=== PATIENT | female | born 1945 | race Two or more races ===

== ENCOUNTER → 2016-08-18 | Outpatient (CLI) | payer MEDICARE ==
--- NOTE | 2016-08-18 16:52 | Diagnostic Imaging Report ---
Indication: COUGH Technique: Two views of the chest Comparison: none Findings: Heart size is normal. Aorta is tortuous calcified and ectatic. Upper mediastinum is unremarkable. There are degenerative changes of the thoracic spine. Impression: No acute process
== END | disposition home or self-care (01) ==
LOC: RAD 15:35
DX: R05 Cough (principal); M51.34 Other intervertebral disc degeneration, thoracic region
CPT/HCPCS: 71020

== ENCOUNTER 2016-09-28 11:17 | Outpatient (CLI) | payer MEDICARE ==
[2016-09-28] MEDS ORDERED: UNOBMED (12:31)
[2016-09-28] MEDS ORDERED: ASPIR 8181 MG ORAL (12:31)
--- NOTE | 2016-09-28 12:34 | GI Initial Consult Note ---
History of Present Illness General Date patient seen: September 28, 2016 Time patient seen: 11:30 Referring physician: OREN Reason for Consultation: ROUTINE COLONOSCOPY Present Illness HPI 71 year old male patient referred by Dr. Aguilar for routine colonoscopy. The patient presents today with no GI complaints. Denies any unintentional weight loss. States his last colonoscopy was approximately 15 years ago. Home Meds Reported Medications Unable to Obtain Medications (UNABLE TO OBTAIN MEDS) 1 Ea Ea 09/28/16 Aspirin* (ASPIR 81*) 81 Mg Tablet.dr, 81 MG ORAL DAILY, TAB 09/28/16 Med list reviewed/reconciled: Yes Allergies: Coded Allergies: No Known Allergies (Unverified , 09/28/16) Patient History History Provided By: Patient PMH Narrative Kidney mass cholesterol HTN asthma CVA PSHx >> n/a Family History Narrative father - lung ca sister - brain tumor Social History: Denies: alcohol use, drug use, other, smoking Review of Systems All Other Systems: negative except mentioned in HPI Physical Exam T 97.3 BP 122/77 P 76 98 RA WT 134.9 lbs General Appearance: well appearing, no apparent distress, alert Head: normocephalic EENT: normal ENT inspection Neck: normal inspection, full range of motion, supple Respiratory: normal breath sounds, no respiratory distress Cardiovascular: normal peripheral pulses, normal rate Gastrointestinal: normal inspection, non tender, soft Rectal: deferred Genitourinary: no CVA tenderness Musculoskeletal: normal inspection, back normal Neurologic: normal inspection, alert, oriented x3, responsive, thread singer III-XII nml as tested Psychiatric: normal inspection, judgement/insight normal, memory normal Skin: normal inspection, normal color, no rash, warm/dry Lymphatic: normal inspection, no adenopathy GI: Plan Problems: (1) Kidney mass (2) Elevated cholesterol (3) CVA (cerebral vascular accident) (4) HTN (hypertension) (5) Asthma Plan colonoscopy scheduled 10/06/16. - suprep & CLD prep instructions given. Seen with Dr. Horne. Thank you for referring this patient. Tracee Stern N.P. September 28, 2016 12:34
== END 2016-09-28 11:50 | disposition home or self-care (01) ==
LOC: PAN 11:17
DX: E78.00 Pure hypercholesterolemia, unspecified (principal); N28.89 Other specified disorders of kidney and ureter; Z86.73 Personal history of transient ischemic attack (TIA), and cerebral infarction without residual deficits; I10 Essential (primary) hypertension; J45.909 Unspecified asthma, uncomplicated; Z80.1 Family history of malignant neoplasm of trachea, bronchus and lung; Z79.82 Long term (current) use of aspirin
CPT/HCPCS: 99201

== ENCOUNTER 2016-10-06 08:12 | Day surgery (SDC) | payer MEDICARE, OTHER ==
[~2016-10-06] VITALS: Ht 162.6 cm; Wt 62.1 kg
[2016-10-06] VITALS (11 sets, daily range): BP systolic 115–145; BP diastolic 67–85
--- NOTE | 2016-10-06 06:37 | Anethesia Preoperative Eval ---
Anesthesia Pre-op PMH/ROS General Date of Evaluation: October 06, 2016 Time of Evaluation: 10:02 Anesthesiologist: mayra ASA Score: ASA 2 Mallampati Score Class I : Soft palate, uvula, fauces, pillars visible Class II: Soft palate, uvula, fauces visible Class III: Soft palate, base of uvula visible Class IV: Only hard plate visible Mallampati Classification: Class II Surgeon: sourav Diagnosis: colon screening Surgical Procedure: egd diagnostic/colonoscopy Anesthesia History: none Social History: smoking - non smoker Family History: no anesthesia problems Allergies: Coded Allergies: No Known Allergies (Unverified , 10/06/16) Medications: see eMAR Past Medical History Cardiovascular: Reports: HTN, other - cva, hypercholesterolemia Pulmonary: Reports: asthma Gastrointestinal/Genitourinary: Reports: other - kidney stones Anesthesia Pre-op Phys. Exam Physician Exam Last Vital Signs Date Time Temp Pulse Resp B/P Pulse Ox O2 Delivery O2 Flow Rate FiO2 10/06/16 09:21 97.9 68 16 115/72 100 Room Air Constitutional: NAD Neurologic: CN 2-12 intact Cardiovascular: RRR, no M/R/G Respiratory: CTA Airway Exam Mallampati Score: Class II MO: full Neck: supple ROM: full Teeth: intact Anesthesia Pre-op A/P Studies Pre-op Studies: EKG - nsr Risk Assessment & Plan Assessment: colon screening Plan: egd diagnostic/colonoscopy Status Change Before Surgery: No Pre-Antibiotics Drug: none SUDHA MARTINEZ October 06, 2016 06:37
[~2016-10-06 08:12] MED LIST: ASPIR 8181 MG ORAL; UNOBMED
[2016-10-06] MEDS ORDERED: Lidocaine 1% MPF 10mg/ml 5ml ONE (08:13)
[2016-10-06] MEDS ORDERED: Propofol 10mg/ml 20ml IV ONE (08:13)
[2016-10-06] MEDS ORDERED: cholesterol pill PO (09:29)
[2016-10-06] MEDS ORDERED: SINGULAIR10 MG ORAL (09:30)
[2016-10-06] MEDS ORDERED: blood pressure pill PO (09:30)
--- NOTE | 2016-10-06 09:53 | Pre-Procedure Note/Attestation ---
Pre-Procedure Note/Attestation Complete Prior to Procedure Planned Procedure: not applicable Procedure Narrative: colonoscopy Indications for Procedure Pre-Operative Diagnosis: screening Attestation I attest that I discussed the nature of the procedure; its benefits; risks and complications; and alternatives (and the risks and benefits of such alternatives ), prior to the procedure, with the patient (or the patient's legal account executive sales representative). I attest that, if there was a reasonable possibility of needing a blood transfusion, the patient (or the patient's legal account executive sales representative) was given the [facility] standardized written summary, pursuant to the [place] Blood Safety Act ([place] Health and Safety Code # 1645, as amended). I attest that I re-evaluated the patient just prior to the surgery and that there has been no change in the patient's H&P, except as documented below: SAMANTA CABRERA October 06, 2016 09:53
--- NOTE | 2016-10-06 09:54 | Short Stay Surgery H&P ---
History of Present Illness History of Present Illness Chief Complaint see recent consult HPI Tomeka Solis is a 71 year old male who was admitted on for Colon Screening Patient History Allergies: Coded Allergies: No Known Allergies (Unverified , 10/06/16) PAST MEDICAL HISTORY: Past Surgeries: Social History: Medication History Scheduled Aspirin* (Aspir 81*), 81 MG ORAL DAILY, (Reported) Montelukast Sodium* (Singulair*), Unknown Dose ORAL DAILY, (Reported) [blood pressure pill], Unknown Dose PO DAILY, (Reported) [cholesterol pill], Unknown Dose PO HS, (Reported) Physical Exam Vital Signs Last Vital Signs Date Time Temp Pulse Resp B/P Pulse Ox O2 Delivery O2 Flow Rate FiO2 10/06/16 09:21 97.9 68 16 115/72 100 Room Air Plan Attestation Are the patient's medical conditions optimized for surgery? SAMANTA CABRERA October 06, 2016 09:54
--- NOTE | 2016-10-06 10:41 | Endoscopy Procedure Note ---
Endoscopy Procedure Note Indication for Procedure: screening Procedures Performed: colonoscopy Operative Findings/Diagnosis: one polyp Specimen: yes Pt Tolerated Procedure Well: Yes Estimated Blood Loss: none Anesthesiologist: marnie Anesthesia: MAC Implant(s) used?: No 50 yrs or older w/o bx or poly: No 10yrs. F/U not recommended: Yes If not recommended, why?: Above average risk 10 yrs. F/U needed: Yes 18 years or older w/prev. colo: No SAMANTA CABRERA October 06, 2016 10:41
--- NOTE | 2016-10-06 12:25 | Immediate Post-Op Evaluation ---
Immediate Post-Op Evalulation Immediate Post-Op Evalulation Procedure: colonoscopy Date of Evaluation: October 06, 2016 Time of Evaluation: 10:40 IV Fluids: 450ml Blood Products: negligible Blood Pressure Systolic: 132 Blood Pressure Diastolic: 71 Pulse Rate: 60 Respiratory Rate: 14 O2 Sat by Pulse Oximetry: 100 Temperature (Fahrenheit): 97.0 Pain Score (1-10): 0 Nausea: No Vomiting: No Complications none Patient Status: awake, reacts, patent Hydration Status: adequate Drug: none SUDHA MARTINEZ October 06, 2016 12:25
--- NOTE | 2016-10-06 12:28 | 48 Hour Post Anesthesia Eval ---
Post Anesthesia Evaluation Procedure: colonoscopy Date of Evaluation: October 06, 2016 Time of Evaluation: 10:45 Blood Pressure Systolic: 121 0: 73 Pulse Rate: 64 Respiratory Rate: 16 Temperature (Fahrenheit): 97.4 O2 Sat by Pulse Oximetry: 98 Airway: patent Nausea: No Vomiting: No Pain Intensity: 0 Hydration Status: adequate Cardiopulmonary Status: stable Post-Anesthesia Complications: none Follow-up care needed: N/A SUDHA MARTINEZ October 06, 2016 12:28
--- NOTE | 2016-10-06 18:41 | Procedure Note ---
DATE OF PROCEDURE: 10/06/2016 SURGEON: Cameron Horne M.D. PROCEDURE: Colonoscopy with biopsy. ANESTHESIOLOGIST: Yodit Rapp M.D. INSTRUMENT: Olympus adult flexible colonoscope. INDICATION: Screening colonoscopy evaluation. REASON FOR PROCEDURE: The procedure, risks, benefits, and possible consequences, including hemorrhage, aspiration, perforation and infection, and alternative treatments, were explained to the patient/legal guardian by Dr. Cameron Horne and the patient/legal guardian understood and accepted these risks. DESCRIPTION OF PROCEDURE: After informed consent was obtained and the patient was adequately sedated, first rectal exam was performed, which was normal. Then, the scope was advanced from the rectum into the cecum and then subsequently into the terminal ileum. Quality of prep was very good. The patient had normal terminal ileum. The patient had some polypoid changes right at the ileocecal valve, which was biopsied. There was one diminutive polyp in the transverse colon, which was removed with the cold biopsy forceps technique. The rest of the examination was grossly within normal limits. Retroflexion of rectum showed no obvious internal hemorrhoids. SUMMARY OF FINDINGS: 1. Prominent ileocecal valve, status post biopsy. 2. One polyp removed, see above for details. 3. Internal hemorrhoids. RECOMMENDATIONS: Follow up biopsy results and treat accordingly. I want to thank, Dr. Earl Aguilar, for this kind referral. Cameron Horne M.D. DR: PETER JOB#: [id number] CC: Earl Aguilar M.D.; Fax#: [phone]
== END 2016-10-06 12:30 | disposition home or self-care (01) ==
LOC: GAS 08:12
DX: Z12.11 Encounter for screening for malignant neoplasm of colon (principal); D12.3 Benign neoplasm of transverse colon; D12.0 Benign neoplasm of cecum; K64.8 Other hemorrhoids; I10 Essential (primary) hypertension; E78.00 Pure hypercholesterolemia, unspecified; J45.909 Unspecified asthma, uncomplicated; F17.200 Nicotine dependence, unspecified, uncomplicated; Z86.73 Personal history of transient ischemic attack (TIA), and cerebral infarction without residual deficits; Z87.442 Personal history of urinary calculi; Z79.82 Long term (current) use of aspirin
CPT/HCPCS: 45380; J2704; 94003; 94150

== ENCOUNTER 2016-11-17 08:43 | Outpatient (CLI) | payer MEDICARE, MEDICAID ==
[~2016-11-17 08:43] MED LIST changes: +SINGULAIR10 MG ORAL; +blood pressure pill PO; +cholesterol pill PO
--- NOTE | 2016-11-17 11:32 | Diagnostic Imaging Report ---
Indication: PAIN Technique: 3 views of the right knee Comparison: None Findings:There is a superior pole patellar osteophyte. No acute fractures. No dislocations. Joint spaces are preserved. Impression:No acute process Mild degenerative changes
--- NOTE | 2016-11-17 14:06 | Diagnostic Imaging Report ---
Indication: PAIN Technique: 3 views of the left knee Comparison: None Findings:No acute fractures. No dislocations. No suprapatellar effusion. Joint spaces are preserved. There are vascular calcifications Impression:Negative
== END 2016-11-17 10:43 | disposition home or self-care (01) ==
LOC: RAD 08:43
DX: M25.562 Pain in left knee (principal); M25.561 Pain in right knee; M25.761 Osteophyte, right knee

== ENCOUNTER 2017-08-15 13:55 | Outpatient (CLI) | payer MEDICARE, OTHER ==
--- NOTE | 2017-08-15 15:36 | GI Progress Note ---
Assessment/Plan Problems: (1) Anemia ICD Codes: D64.9 - Anemia, unspecified SNOMED: 473403664 Status: stable Status Narrative Seen with Dr. Horne. Assessment/Plan labs reviewed with patient EGD scheduled 08/22/17. - NPO @ [place] day prior procedure. will consider capsule endoscopy if above negative Subjective Subjective No symptoms abnormal lab results referred by Lauren Objective T 97.9 Bp Bp 121/70 P 78 96 RA General Appearance: WD/WN, no apparent distress, alert Cardiovascular: normal rate Respiratory/Chest: normal breath sounds, no respiratory distress Abdominal Exam: normal bowel sounds, non tender, soft Extremities: normal range of motion, non-tender Tracee Stern N.P. Aug 15, 2017 15:36
== END 2017-08-15 14:25 | disposition home or self-care (01) ==
LOC: PAN 13:55
DX: D64.9 Anemia, unspecified (principal)
CPT/HCPCS: 99212

== ENCOUNTER 2017-08-22 08:10 | Day surgery (SDC) | payer MEDICARE, MEDICAID ==
[~2017-08-22] VITALS: Ht 162.6 cm; Wt 65.8 kg
[2017-08-22] VITALS (7 sets, daily range): BP systolic 127–138; BP diastolic 70–85
--- NOTE | 2017-08-22 09:18 | Pre-Procedure Note/Attestation ---
Pre-Procedure Note/Attestation Complete Prior to Procedure Planned Procedure: not applicable Procedure Narrative: egd Indications for Procedure Pre-Operative Diagnosis: anemia Attestation I attest that I discussed the nature of the procedure; its benefits; risks and complications; and alternatives (and the risks and benefits of such alternatives ), prior to the procedure, with the patient (or the patient's legal automotive sales representative). I attest that, if there was a reasonable possibility of needing a blood transfusion, the patient (or the patient's legal automotive sales representative) was given the [facility] standardized written summary, pursuant to the [place] Blood Safety Act ([place] Health and Safety Code # 1645, as amended). I attest that I re-evaluated the patient just prior to the surgery and that there has been no change in the patient's H&P, except as documented below: SAMANTA CABRERA Aug 22, 2017 09:18
--- NOTE | 2017-08-22 09:19 | Short Stay Surgery H&P ---
History of Present Illness History of Present Illness Chief Complaint anemia HPI Tomeka Solis is a 72 year old male who was admitted on for Anemia Patient History Allergies: Coded Allergies: No Known Allergies (Unverified , 10/06/16) PAST MEDICAL HISTORY: (1) CVA (cerebral vascular accident) (2) HTN (hypertension) (3) Asthma (4) Kidney mass (5) Anemia (6) Elevated cholesterol Medication History Scheduled Aspirin* (Aspir 81*), 81 MG ORAL DAILY, (Reported) Montelukast Sodium* (Singulair*), Unknown Dose ORAL DAILY, (Reported) [blood pressure pill], Unknown Dose PO DAILY, (Reported) [cholesterol pill], Unknown Dose PO HS, (Reported) Physical Exam Vital Signs Last Vital Signs Date Time Temp Pulse Resp B/P (MAP) Pulse Ox O2 Delivery O2 Flow Rate FiO2 08/22/17 08:57 97.2 70 20 135/70 100 Room Air 97.2 Skin: normal HENT: normal Heart: normal Lungs: normal Abdomen: normal Extremities: normal Plan Plan of Care egd Attestation Are the patient's medical conditions optimized for surgery? Attestation Response: yes SAMANTA CABRERA Aug 22, 2017 09:19
[2017-08-22] MEDS ORDERED: Hydromorphone 0.5mg/0.5ml inj IVP PRN (09:45)
[2017-08-22] MEDS ORDERED: Norco 5mg/325mg tab ORAL PRN (09:45)
[2017-08-22] MEDS ORDERED: fentaNYL 100 mcg/2 mL IV PRN (09:45)
[2017-08-22] MEDS ORDERED: Midazolam 2mg/2ml Inj IVP PRN (09:45)
[2017-08-22] MEDS ORDERED: HYDROcodone/Acetamin 7.5/325 tab ORAL PRN (09:45)
[2017-08-22] MEDS ORDERED: oxyCODONE HCL/Acetaminophen 5/325mg ORAL PRN (09:45)
[2017-08-22] MEDS ORDERED: LORazepam Inj 2mg/ml 1ml IV PRN (09:45)
[2017-08-22] MEDS ORDERED: Ketorolac 30mg Inj IV PRN ×2 (09:45)
[2017-08-22] MEDS ORDERED: Atropine Inj 1mg/10ml Syr IV PRN (09:45)
[2017-08-22] MEDS ORDERED: LR 1000ml 1,000 ML IVLG SCH (09:45)
[2017-08-22] MEDS ORDERED: Labetalol 5mg/ml 20ml vial IV PRN (09:45)
[2017-08-22] MEDS ORDERED: DiphenhydrAMINE 50mg/ml Inj IVP PRN (09:45)
--- NOTE | 2017-08-22 09:52 | Anethesia Preoperative Eval ---
Anesthesia Pre-op PMH/ROS General Date of Evaluation: Aug 22, 2017 Time of Evaluation: 09:47 Anesthesiologist: Tisha ASA Score: ASA 3 Mallampati Score Class I : Soft palate, uvula, fauces, pillars visible Class II: Soft palate, uvula, fauces visible Class III: Soft palate, base of uvula visible Class IV: Only hard plate visible Mallampati Classification: Class II Surgeon: Ozzie Diagnosis: Anemia Surgical Procedure: EGD Anesthesia History: none Family History: no anesthesia problems Allergies: Coded Allergies: No Known Allergies (Unverified , 10/06/16) Medications: see eMAR Past Medical History Cardiovascular: Reports: HTN, other - HL Pulmonary: Reports: asthma Gastrointestinal/Genitourinary: Reports: other - Renolithiasis Neurologic/Psychiatric: Reports: CVA Anesthesia Pre-op Phys. Exam Physician Exam Last Vital Signs Date Time Temp Pulse Resp B/P (MAP) Pulse Ox O2 Delivery O2 Flow Rate FiO2 08/22/17 08:57 97.2 70 20 135/70 100 Room Air 97.2 Constitutional: NAD Neurologic: CN 2-12 intact Cardiovascular: RRR Respiratory: CTA Gastrointestinal: S/NT/ND Airway Exam Mallampati Classification ASA 3 Mallampati Score: Class II MO: limited ROM: limited Teeth: missing, intact Anesthesia Pre-op A/P Risk Assessment & Plan Assessment: ASA 3 Plan: GA Status Change Before Surgery: Torin Rios MD Aug 22, 2017 09:52
[2017-08-22] MEDS ORDERED: LR 1000ml ONE (10:00)
[2017-08-22] MEDS ORDERED: Midazolam 2mg/2ml Inj ONE (10:00)
[2017-08-22] MEDS ORDERED: Propofol 200mg/20ml IV ONE (10:00)
[2017-08-22] MEDS ORDERED: Lidocaine 1% MPF 10mg/ml 5ml ONE (10:00)
--- NOTE | 2017-08-22 10:02 | Immediate Post-Op Evaluation ---
Immediate Post-Op Evalulation Immediate Post-Op Evalulation Procedure: EGD Date of Evaluation: Aug 22, 2017 Time of Evaluation: 10:20 IV Fluids: 300 LR Blood Products: 0 Estimated Blood Loss: 3 Urinary Output: 0 Blood Pressure Systolic: 127 Blood Pressure Diastolic: 82 Pulse Rate: 73 Respiratory Rate: 16 O2 Sat by Pulse Oximetry: 100 Temperature (Fahrenheit): 97.7 Pain Score (1-10): 1 Nausea: No Vomiting: No Complications 0 Patient Status: awake, reacts, patent, extubated, none Hydration Status: adequate Torin Giles MD Aug 22, 2017 10:02
--- NOTE | 2017-08-22 10:04 | 48 Hour Post Anesthesia Eval ---
Post Anesthesia Evaluation Procedure: EGD Date of Evaluation: Aug 22, 2017 Time of Evaluation: 12:46 Blood Pressure Systolic: 141 0: 89 Pulse Rate: 74 Respiratory Rate: 18 Temperature (Fahrenheit): 97.8 O2 Sat by Pulse Oximetry: 99 Airway: patent Nausea: No Vomiting: No Pain Intensity: 1 Hydration Status: adequate Cardiopulmonary Status: Stable Mental Status/LOC: patient returned to baseline Follow-up Care/Observations: 0 Post-Anesthesia Complications: 0 Follow-up care needed: ready to discharge Torin Giles MD Aug 22, 2017 10:04
--- NOTE | 2017-08-22 10:07 | Endoscopy Procedure Note ---
Endoscopy Procedure Note General Indication for Procedure: anemia Procedures Performed: EGD Operative Findings/Diagnosis: DU Specimen: yes Pt Tolerated Procedure Well: Yes Estimated Blood Loss: none Anesthesia Anesthesiologist: caterina Anesthesia: MAC Inserted Devices Implant(s) used?: No GI Core Measures 50 yrs or older w/o bx or poly: Not Applicable 10yrs. F/U not recommended: Not Applicable SAMANTA CABRERA Aug 22, 2017 10:07
--- NOTE | 2017-08-22 11:00 | Procedure Note ---
DATE OF PROCEDURE: 08/22/2017 SURGEON: Cameron Horne M.D. PROCEDURE: Upper endoscopy with biopsy. ANESTHESIOLOGIST: Dr. Giles. INSTRUMENT: Olympus adult flexible upper endoscope. INDICATION: Anemia. REASON FOR PROCEDURE: The procedure, risks, benefits, and possible consequences, including hemorrhage, aspiration, perforation and infection, and alternative treatments, were explained to the patient/legal guardian by Dr. Cameron Horne and the patient/legal guardian understood and accepted these risks. DESCRIPTION OF PROCEDURE: After informed consent was obtained and the patient was adequately sedated, Olympus upper endoscope was advanced from mouth into the second portion of the duodenum and retroflexion was performed in the stomach. The patient had evidence of two ulcers in the duodenal bulb, less than 1 cm without any adherent clot, no visible vessel, most probably the source of anemia. The patient also has evidence of gastritis. Biopsy from the antrum was obtained to rule out H. pylori infection. The patient has evidence of hiatal hernia, small. No evidence of any esophagitis, but the patient had irregular Z-line. Z-line is about 35 cm from the incisors. The patient tolerated the procedure well without any complication. SUMMARY OF FINDINGS: 1. Two shallow duodenal ulcerations. 2. Gastritis, status post biopsy. 3. Hiatal hernia. 4. Irregular Z-line. RECOMMENDATIONS: Start the patient on PPI daily. Follow hemoglobin and hematocrit. Follow up biopsy results. Treat for H. pylori if it is positive. The patient is to follow as an outpatient. I want to thank Dr. Earl Aguilar, for this kind referral. Cameron Horne M.D. DR: DHEERAJ JOB#: [id number] CC: Earl Aguilar M.D.; Fax#: [phone]
--- NOTE | 2017-08-22 18:47 | Cardiology Report ---
APPROVED REPORT EKG Measurement Heart [id number] Normal sinus rhythm Normal ECG
== END 2017-08-22 11:15 | disposition home or self-care (01) ==
LOC: GAS 08:10
DX: K26.9 Duodenal ulcer, unspecified as acute or chronic, without hemorrhage or perforation (principal); K29.70 Gastritis, unspecified, without bleeding; K44.9 Diaphragmatic hernia without obstruction or gangrene; I10 Essential (primary) hypertension; Z86.73 Personal history of transient ischemic attack (TIA), and cerebral infarction without residual deficits; E78.00 Pure hypercholesterolemia, unspecified; Z79.82 Long term (current) use of aspirin; B96.81 Helicobacter pylori [H. pylori] as the cause of diseases classified elsewhere
CPT/HCPCS: 93005; 94003; 94150; J2250

== ENCOUNTER 2017-09-06 09:39 | Outpatient (CLI) | payer MEDICARE, OTHER ==
--- NOTE | 2017-09-06 10:08 | GI Progress Note ---
Assessment/Plan Problems: (1) Anemia ICD Codes: D64.9 - Anemia, unspecified SNOMED: 948346962 Status: stable Status Narrative Discussed with Dr. Horne. Assessment/Plan SUMMARY OF FINDINGS: 1. Two shallow duodenal ulcerations. 2. Gastritis, status post biopsy. >> positive for H. Pylori 3. Hiatal hernia. 4. Irregular Z-line. RECOMMENDATIONS: H. Pylori Treatment >> - Amoxicillin 1g BID - Biaxin 500mb BID - Omeprazole 40mg x 2 weeks followed by Omeprazole 40mg PO daily x 6 weeks RTC x 3 month for repeat Breath Test repeat colonoscopy in 2021 Subjective Gastrointestinal/Abdominal: Reports: no symptoms Objective T 97.9 BP 123/73 HR 66 95 RA General Appearance: WD/WN, no apparent distress, alert Cardiovascular: normal rate Respiratory/Chest: normal breath sounds, no respiratory distress Abdominal Exam: normal bowel sounds, non tender, soft Extremities: normal range of motion, non-tender Tracee Stern N.P. Sep 06, 2017 10:08
[2017-09-06 11:02] VITALS: BP 123/73
== END 2017-09-06 10:14 | disposition home or self-care (01) ==
LOC: PAN 09:39
DX: D64.9 Anemia, unspecified (principal); K29.70 Gastritis, unspecified, without bleeding; K44.9 Diaphragmatic hernia without obstruction or gangrene; B96.81 Helicobacter pylori [H. pylori] as the cause of diseases classified elsewhere
CPT/HCPCS: 99212

== ENCOUNTER 2017-12-05 14:10 | Outpatient (CLI) | payer MEDICARE, MEDICAID ==
[2017-12-05 15:09] VITALS: BP 98/57
--- NOTE | 2017-12-05 15:41 | GI Progress Note ---
Assessment/Plan Problems: (1) H. pylori infection ICD Codes: A04.8 - Other specified bacterial intestinal infections SNOMED: 255159083 (2) Anemia ICD Codes: D64.9 - Anemia, unspecified SNOMED: 435582360 Status: stable Status Narrative Seen with Dr. Horne. Assessment/Plan H. Pylori infection s/x treatment repeat Breath Test today will contact patient for follow up if necessary repeat colonoscopy in 2021 Subjective Gastrointestinal/Abdominal: Reports: no symptoms Objective Last 24 Hour Vital Signs Date Time Temp Pulse Resp B/P (MAP) Pulse Ox O2 Delivery O2 Flow Rate FiO2 12/05/17 15:09 98.4 74 98/57 95 98.4 General Appearance: WD/WN, no apparent distress, alert Cardiovascular: normal rate Respiratory/Chest: normal breath sounds, no respiratory distress Abdominal Exam: normal bowel sounds, non tender, soft Extremities: normal range of motion, non-tender Rigo Stern NP Dec 05, 2017 15:41
== END 2017-12-05 16:10 | disposition home or self-care (01) ==
LOC: PAN 14:10
DX: D64.9 Anemia, unspecified (principal); B96.81 Helicobacter pylori [H. pylori] as the cause of diseases classified elsewhere
CPT/HCPCS: 83013; G0463; 99212

== ENCOUNTER 2017-12-26 14:27 | Outpatient (CLI) | payer MEDICARE, MEDICAID ==
--- NOTE | 2017-12-26 14:53 | GI Progress Note ---
Assessment/Plan Problems: (1) H. pylori infection ICD Codes: A04.8 - Other specified bacterial intestinal infections SNOMED: 222993066 (2) Anemia ICD Codes: D64.9 - Anemia, unspecified SNOMED: 469759308 (3) Elevated cholesterol ICD Codes: E78.00 - Pure hypercholesterolemia, unspecified SNOMED: 58833606 (4) CVA (cerebral vascular accident) ICD Codes: I63.9 - Cerebral infarction, unspecified SNOMED: 780287628 Status: stable Status Narrative Seen with Dr. Horne. Assessment/Plan H. Pylori infection s/x treatment repeat BT positive repeat treatment for H. Pylori with Quadruple Therapy RTC x 3 month for repeat Breath Test repeat colonoscopy in 2021 The patient was seen and examined at bedside and all new and available data was reviewed in the patients chart. I agree with the above findings, impression and plan. (Patient seen earlier today. Signature stamp does not reflect patient encounter time.). - Cameron Horne MD Subjective Gastrointestinal/Abdominal: Reports: no symptoms Objective T 98.1 BP 117/51 P 83 95 RA General Appearance: WD/WN, no apparent distress, alert Cardiovascular: normal rate Respiratory/Chest: normal breath sounds, no respiratory distress Abdominal Exam: normal bowel sounds, non tender, soft Extremities: normal range of motion, non-tender Rigo Stern NP Dec 26, 2017 14:53
[2017-12-26 14:54] VITALS: BP 117/57
== END 2017-12-26 15:00 | disposition home or self-care (01) ==
LOC: PAN 14:27
DX: D64.9 Anemia, unspecified (principal); A04.8 Other specified bacterial intestinal infections; E78.00 Pure hypercholesterolemia, unspecified; I63.9 Cerebral infarction, unspecified
CPT/HCPCS: 99212

== ENCOUNTER 2018-03-20 12:54 | Outpatient (CLI) | payer MEDICARE, MEDICAID ==
[2018-03-20 13:17] VITALS: BP 115/56
--- NOTE | 2018-03-20 16:27 | GI Progress Note ---
Assessment/Plan Problems: (1) H. pylori infection ICD Codes: A04.8 - Other specified bacterial intestinal infections SNOMED: 540412895 (2) Anemia ICD Codes: D64.9 - Anemia, unspecified SNOMED: 927887517 Status: stable Status Narrative Seen with Dr. Horne. Assessment/Plan SUMMARY OF FINDINGS: 1. Two shallow duodenal ulcerations. 2. Gastritis, status post biopsy. 3. Hiatal hernia. 4. Irregular Z-line. H. Pylori infection s/p 2nd treatment repeat BT today RTC pending results, will contact patient The patient was seen and examined at bedside and all new and available data was reviewed in the patients chart. I agree with the above findings, impression and plan. (Patient seen earlier today. Signature stamp does not reflect patient encounter time.). - Cameron Horne MD Subjective Gastrointestinal/Abdominal: Reports: no symptoms Objective Last 24 Hour Vital Signs Date Time Temp Pulse Resp B/P (MAP) Pulse Ox O2 Delivery O2 Flow Rate FiO2 03/20/18 13:17 97.9 40 16 115/56 96 Laboratory Tests Test 03/20/18 13:40 Helicobacter pylori Breath Test Pending General Appearance: WD/WN, no apparent distress, alert Cardiovascular: normal rate Respiratory/Chest: normal breath sounds, no respiratory distress Abdominal Exam: normal bowel sounds, non tender, soft Extremities: normal range of motion, non-tender Rigo Stern [employer] Mar 20, 2018 16:27
== END 2018-03-20 13:24 | disposition home or self-care (01) ==
LOC: PAN 12:54
DX: A04.8 Other specified bacterial intestinal infections (principal); D64.9 Anemia, unspecified; K26.9 Duodenal ulcer, unspecified as acute or chronic, without hemorrhage or perforation; K29.70 Gastritis, unspecified, without bleeding; K44.9 Diaphragmatic hernia without obstruction or gangrene
CPT/HCPCS: 83013; G0463